=== PATIENT | male | born 1995 | race Caucasian/White ===

== ENCOUNTER 2024-09-04 13:51 | Emergency (ER) | payer BC, SELFPAY ==
[2024-09-04 13:57] VITALS: PULSE 81; RESP 15; TEMP 36.6; O2SAT 97
--- NOTE | 2024-09-04 14:15 | DI.US_ITS ---
Exam(s) US SCROTUM EXAM: US SCROTUM CLINICAL HISTORY: left testicle swelling/redness. Two weeks postop vasectomy. TECHNIQUE: Scrotal ultrasound performed using grayscale, color-flow and spectral Doppler analysis. COMPARISON: No exams were available for comparison FINDINGS: RIGHT TESTICLE: 5.1 x 2.5 x 3.2 cm Echogenicity: Normal. Contour: Smooth. Mass: None seen. Microlithiasis: None. Hydrocele: None. Varicocele: None. Hernia: No peristalsing bowel loop identified. Epididymis: Normal. Scrotum: Normal. Normal Doppler waveforms. LEFT TESTICLE: 4.5 x 2.4 x 3.1 cm Echogenicity: Normal. Mild hyperemia. Contour: Smooth. Mass: None seen. Microlithiasis: Single 2 millimeter calcification. Hydrocele: Yes with larger pocket measuring 3.1 x 1.0 x 2.6 cm. Varicocele: None. Hernia: There is some echogenic material seen superior to the left testicle which has the echogenicit y of fat and could represent a fatty hernia. No peristalsing bowel loop identified. Epididymis: Normal. Scrotum: Marked wall thickening, up to 1.5 cm. Hyperemia within the wall. Heterogeneous hyperemic a ham in scrotal wall superior to the testicle measuring 3.5 x 3.1 x 4.4 cm suspicious for phlegmon. I t does not appear drainable. IMPRESSION: Normal appearing bilateral testicles. Mild hyperemia to the left testicle. Small left hydrocele. Marked left scrotal wall thickening and hyperemia with focal complex mixed echogenicity area superior to left testicle suspicious for phlegmon. Question of a fat containing left inguinal hernia. DATA REPOSITORY:
--- NOTE | 2024-09-04 14:27 | W.ED.GENAD ---
Discharge Plan Disposition Patient Disposition: Home Condition: Stable Discharge Details Clinical Impression: Pain in scrotum Primary Care Provider: Unknown,Unknown ED Provider: Avila Gamez Home Meds and New Rx's Prescriptions: New sulfamethoxazole-trimethoprim [Bactrim DS] 800-160 mg tablet 1 tab PO BID Qty: 14 0RF amoxicillin-pot clavulanate 875-125 mg tablet 1 tab PO BID Qty: 14 0RF Discharge Instructions Additional Instructions: If your symptoms not improving by Friday follow-up with Dr. Read. You can take 1000 mg of acetaminophen and 600 mg of ibuprofen every 6 hours as needed. If you feel more ill, have severe worsening pain or high fevers return to the emergency department for reevaluation. HPI General Mode of arrival: ambulatory. Date/Time Provider Initiated Documentation: 09/04/24 13:55. Limitations to Documentation: no limitations. Information obtained by: patient. History of Present Illness 29 year old M presents to the emergency department with the chief complaint of left scrotal discomfort/swelling, described as moderate, Quality is described as aching, Patient started experiencing this week(s) (1) and it has been intermittent. No relieving factors improve symptom(s), No exacerbating factors reported . Patient notes denies fever/chills. Patient did receive the following treatments prior to arrival, none Related Data Home Medications ?Medication ?Instructions ?Recorded ?Confirmed amoxicillin 875 mg-potassium 1 tab PO BID #14 tabs 09/04/24 clavulanate 125 mg tablet sulfamethoxazole 800 1 tab PO BID #14 tabs 09/04/24 mg-trimethoprim 160 mg tablet (Bactrim DS) Previous Rx's ?Medication ?Instructions ?Recorded amoxicillin 875 mg-potassium 1 tab PO BID #14 tabs 09/04/24 clavulanate 125 mg tablet sulfamethoxazole 800 1 tab PO BID #14 tabs 09/04/24 mg-trimethoprim 160 mg tablet (Bactrim DS) Allergies Allergy/AdvReac Type Severity Reaction Status Date / Time No Known Allergies Allergy Verified 09/04/24 14:02 General Stated Complaint: Male Reproductive Problem ZULY: 3 Review of Systems All systems reviewed & are unremarkable except as noted in HPI and below Constitutional Constitutional: Denies chills and Denies fever(s) Cardiovascular Cardiovascular: Denies chest pain and Denies dyspnea Respiratory Respiratory: Denies cough and Denies dyspnea Gastrointestinal Gastrointestinal: Denies abdominal pain, Denies nausea and Denies vomiting Genitourinary Genitourinary: Reports testicular pain Psychiatric Psychiatric: Denies depression Exam Const General: no acute distress Orientation: alert HENRI Head: normal to inspection Ears: external ears normal General nose exam: external nose normal Mouth: moist mucous membranes Eyes General: appearance normal, both eyes and all related structures Neck Neck: normal visual inspection Resp Effort & Inspection: normal respiratory effort and able to speak in complete sentences Cardio Rate: regular rate GI Palpation: soft and nontender Penis: normal penis Testes: testicular swelling Neuro General: patient alert and patient oriented x3 Extrem General: normal to inspection Psych Mental Status: mental status grossly normal Course Vital Signs Vital signs: Vital Signs Temperature 36.6 C 09/04/24 13:57 Pulse 81 09/04/24 13:57 Respiratory Rate 159 H 09/04/24 13:57 Pulse Oximetry 97 09/04/24 13:57 Temperature 36.6 C 09/04/24 13:57 Temperature Source Oral 09/04/24 13:57 Pulse 81 09/04/24 13:57 Respiratory Rate 159 H 09/04/24 13:57 Blood Pressure Position Sitting 09/04/24 13:57 Pulse Oximetry 97 09/04/24 13:57 Oxygen Delivery Method Room Air 09/04/24 13:57 Oxygen Flow Rate 0 09/04/24 13:57 Medical Decision Making 29-year-old male with no chronic medical problems comes in after he had a vasectomy on August 17 and states he developed a hematoma that had improved and he had no pain but then today started having increased pain in discomfort so came here. He took ibuprofen with some relief in pain. He denies any fevers. He has a normal-appearing right testicle without any tenderness, the left testicle is swollen compared to the right, it has very faint erythema, no crepitus. He has intact cremasteric reflex. Suspect hematoma but given recurrence of pain and the mild erythema concern for possible abscess. Will check a CBC, CMP, CRP and sed rate and try to see if we get an hydraulic controls technician to come in on a Friday to do an ultrasound. Ultrasound per [facility] rad radiologist read as a 3.5 x 3.1 x 4.4 cm complex area superior and lateral to the left testes which could represent a phlegmon versus a hematoma. The patient has very mild erythema of the testy no crepitus and no fluctuance so does not appear to have a clear abscess currently. I am going to cover him with antibiotics for potential cellulitis. He will call his urologist office if not improving on Friday and return precautions given. I did attempt to reach Dr. Read to discuss the case with him but unfortunately was not on-call and then returned phone call back. I do not feel he needs a transfer given no definitive abscess seen on imaging Differential Diagnosis Differential Diagnosis: Abscess, hematoma Quality:SDOH Health Related Social Needs: No Data to Display PFSH All Active Problems (Updated 09/04/24 @ 18:07 by Avila Gamez MD) Pain in scrotum (Acute) Social History Smoking/Tobacco Use Status: Never Smoking risk assessment performed?: Yes Drug use: Never Substance use type: does not use
[2024-09-04 15:03] LABS: Abs Immature Grans 0.04 10^3/uL (0.0-0.06); Absolute Basophil Count 0.05 10^3/uL (0.0-0.2); Absolute Eosinophil Count 0.08 10^3/uL (0.0-0.7); Absolute Lymphocyte Count 2.18 10^3/uL (1.2-3.4); Absolute Monocyte Count 0.85 10^3/uL (0.1-0.8); Absolute Neutrophil Count 6.49 10^3/uL (1.2-6.7); Basophils % 0.5 %; Eosinophils % 0.8 %; HCT 39.1 % (40.0-50.0); HGB 13.3 g/dL (13.5-17.5); Immature Grans % 0.4 %; Lymphocytes % 22.5 %; MCH 29.2 pg (27.0-33.0); MCV 86 fL (80-95); MPV 9.9 fL (8.0-11.0); Monocytes % 8.8 %; Platelet Count 231 10^3/uL (130-400); RBC 4.56 10^6/uL (4.36-5.78); RDW 12.5 % (11.8-14.1); RDW-SD 38.8 fL; WBC 9.69 10^3/uL (4.4-10.8)
[2024-09-04 15:05] LABS: ESR 19 mm/hr (0-15)
[2024-09-04 15:24] LABS: Bilirubin Negative (Negative); Blood Negative (Negative); Clarity Clear (Clear); Glucose Negative (Negative); Ketones Negative (Negative); Leukocyte Esterase Negative (Negative); Nitrite Negative (Negative); Specific Gravity <= 1.005 (1.005-1.025); Urobilinogen 0.2 mg/dL (Up to 0.2); pH 6.5 (5-8)
[2024-09-04 15:25] LABS: ALT 34 U/L (16-63); AST 26 U/L (15-37); Albumin 4.4 g/dL (3.4-5.0); Alkaline Phosphatase 98 U/L (46-116); Anion Gap 7.3 mmol/L (3-11); BUN 15 mg/dL (7-18); Bilirubin, Total 1.1 mg/dL (0.2-1.0); C-Reactive Protein 3.36 mg/dL (<or=0.5); CO2 28.7 mmol/L (21.0-32.0); CREATININE 0.9 mg/dL (0.70-1.30); Calcium 9.4 mg/dL (8.5-10.1); Chloride 103 mmol/L (98-107); Glucose 98 mg/dL (74-106); Potassium 3.8 mmol/L (3.5-5.1); Sodium 139 mmol/L (136-145); TSH (W/Ref FT4) 2.21 uIU/mL (0.36-3.74); Total Protein 8.2 g/dL (6.4-8.2)
--- NOTE | 2024-09-04 16:57 | DI.VRAD_ITS ---
PROCEDURE INFORMATION: Exam: US Scrotum and Artery or Vein of the Abdominal and/or Reproductive Organs, Limited Scrotum Exam date and time: 09/04/2024 4:09 PM Age: 29 years old Clinical indication: Other: Left sided testicular pain and redness; Prior surgery; Surgery date: <1 month; Surgery type: 2 weeks post-op vasectomy TECHNIQUE: Imaging protocol: Real-time ultrasound of the scrotum. Real-time duplex ultrasound scan of the arterial or venous flow with porter scale, color Doppler flow and spectral waveform analysis with image documentation. Limited Duplex exam focused of the scrotum. Duplex exam was performed to evaluate for torsion and other vascular conditions. COMPARISON: No relevant prior studies available. FINDINGS: Right testicle: Right testis 5.1 x 2.5 x 3.2 cm. Peak systolic velocity right testis 5 cm/s . Arterial and venous flow documented Left testicle: Left testis 4.5 x 2.4 x 3.1 cm. 2 mm microcalcification in the left testis. 3.5 x 3.1 x 4.4 cm complex area superior and lateral to the left testis could represent phlegmon or hematoma.. Peak systolic velocity left testis 20 cm/s Arterial and venous flow documented Epididymides: Left epididymis 10 x 9 x 11 mm. Right epididymis 9 x 7 x 10 mm Extratesticular spaces: Left hydrocele 3.1 x 1 x 2.6 cm Scrotum/soft tissues: Scrotal wall thickening IMPRESSION: 3.5 x 3.1 x 4.4 cm complex area superior and lateral to the left testis could represent phlegmon or hematoma.. No torsion Dictated and Authenticated by: Jade Acosta MD. Orderin Vera Gramajo MD
[2024-09-04] MEDS: Sulfameth/Trimeth DS TAB 1 TAB PO (18:18)
[2024-09-04] MEDS: Amoxicillin 875/Clav. 125 TAB PO (18:18)
== END 2024-09-04 18:22 | disposition home or self-care (01) ==
PROVIDERS: Emergency Provider Emergency Medicine
DX: N50.82 Scrotal pain (principal); N44.8 Other noninflammatory disorders of the testis; Z98.890 Other specified postprocedural states
CPT/HCPCS: 80053; 85652; 99284; 76870; 81003; 84443; 85025; 86140

== ENCOUNTER 2025-02-17 13:21 | Outpatient (REF) | payer BC, SELFPAY ==
[2025-02-17 14:59] LABS: Calculated LDL 95 mg/dL (<100); Cholesterol 152 mg/dL (<200); HDL Cholesterol 44 mg/dL (>or=40); Triglyceride 68 mg/dL (<150)
[2025-02-17 16:00] LABS: Hemoglobin A1C 5.3 % (<5.7)
[2025-02-17 23:12] LABS: HIV-1/2 Ag & Ab Screen Negative (Negative)
[2025-02-17 23:17] LABS: Hepatitis C Ab w Rflx HCV PCR Negative (Negative)
== END 2025-02-17 13:22 | disposition home or self-care (01) ==
LOC: NCHCN 13:21
PROVIDERS: Visit Provider Student in an Organized Health Care Education/Training Program
DX: Z11.4 Encounter for screening for human immunodeficiency virus [HIV] (principal); Z13.1 Encounter for screening for diabetes mellitus; Z11.59 Encounter for screening for other viral diseases; Z13.220 Encounter for screening for lipoid disorders; Z13.6 Encounter for screening for cardiovascular disorders
CPT/HCPCS: 80061; 86803; 87389; 83036